=== PATIENT | male | born 1985 | race Hispanic/Latino ===

== ENCOUNTER 2025-02-28 23:16 | Emergency (ER) | payer BC ==
[~2025-02-28] VITALS: Ht 188 cm; Wt 158.8 kg
[2025-02-28 23:36] VITALS: BP 143/66; PULSE 88; RESP 18; TEMP 98.8; O2SAT 97
--- NOTE | 2025-02-28 23:42 | ERN ---
General Chief Complaint: Palpitations Stated Complaint: C/O PALPITATIONS, DIZZINESS, NUMBNESS Time Seen by MD: 23:22 Source: patient History of Present Illness Initial Comments 39-year-old morbidly obese male who has had a gastric sleeve followed by a gastric bypass surgery for weight loss. He states he has continued to gain weight. He has used to experiencing dumping syndrome. However today he started to feel more heart palpations, numbness to his extremities and or lightheadedness than usual so he comes to the hospital for evaluation. No fevers or chills Allergies: Coded Allergies: No Known Allergies (Unverified Allergy, Unknown, 02/28/25) Past Medical History Past Medical History: High Cholesterol, Other Medical History Other: HTN, HIGH CHOLESTEROL, lower extremity discoloran from past cellulitis Past Surgical History: Other Surgical History Other: GASTRIC BYPASS X 3 YRS AGO Constitutional: (-) chills, (-) diaphoresis, (-) fever, (-) malaise, (-) weakness, (-) other documentation EENTM: (-) eye pain, (-) blurred vision, (-) tearing, (-) double vision, (-) ear pain, (-) ear discharge, (-) nose pain, (-) nose congestion, (-) throat pain, (-) Throat swelling, (-) mouth pain, (-) tooth pain, (-) mouth swelling, (-) other documentation Respiratory: (-) cough, (-) orthopnea, (-) short of breath, (-) stridor, (-) wheezing, (-) other documentation Cardiovascular: (-) chest pain, (-) edema, (-) palpitations, (-) syncope, (-) dyspnea on exertion, (-) other documentation Gastrointestinal/Abdominal: (+) nausea Genitourinary: (-) penile discharge, (-) dysuria, (-) frequency, (-) hematuria, (-) pain, (-) other documentation Musculoskeletal: (-) Neck pain, (-) back pain, (-) Flank Pain, (-) joint pain, (-) joint swelling, (-) muscle pain, (-) muscle stiffness, (-) gout, (-) other documentation Skin: (-) laceration, (-) contusion, (-) abrasion, (-) abscess, (-) rash, (-) change in color, (-) change in hair, (-) change in nails, (-) diaphoresis, (-) dryness, (-) other documentation Neuro: (+) headache, (+) dizziness Physical Exam General Appearance: (+) mild distress Orientation: (+) alert, (+) oriented x 3 Head/Face Trauma: No Eye: bilateral eye normal inspection, bilateral eye PERRL, bilateral eye EOMI Ear, Nose, Throat: (+) hearing grossly normal, (+) normal ENT inspection, (+) moist mucous membraine Neck: (+) normal inspection, (+) supple, (+) full range of motion Respiratory: (+) chest non-tender, (+) lungs clear, (+) well ventilated Heart: (+) regular, (+) no gallop Vascular: (+) no edema, (+) normal peripheral pulse Gastrointestinal: (+) soft, (+) non-tender, (+) no organomegaly, (+) bowel sound present Results Laboratory and Microbiology Lab and Micro Result Laboratory Tests Test 02/28/25 23:54 03/01/25 00:08 White Blood Count 11.8 K/uL (4.8-10.8) H Red Blood Count 5.15 MIL/uL (4.50-6.20) Hemoglobin 15.0 g/dL (14.0-18.0) Hematocrit 45.4 % (42-54) Mean Corpuscular Volume 88.2 fL (79-99) Mean Corpuscular Hemoglobin 29.1 pg (27.0-33.0) Mean Corpuscular Hemoglobin Concent 33.0 g/dL (32.0-36.0) Red Cell Distribution Width 12.8 % (11.0-15.5) Platelet Count 217 K/uL (130-400) Mean Platelet Volume 9.7 fL (7.5-10.5) Immature Granulocyte % (Auto) 0.4 % (0-1) Neutrophils (%) (Auto) 72.8 % (40.0-77.0) Lymphocytes (%) (Auto) 16.2 % (21.0-51.0) L Monocytes (%) (Auto) 8.8 % (3.0-13.0) Eosinophils (%) (Auto) 1.1 % (0.0-8.0) Basophils (%) (Auto) 0.7 % (0.0-5.0) Neutrophils # (Auto) 8.6 K/uL (1.8-7.7) H Lymphocytes # (Auto) 1.9 K/uL (1.0-4.8) Monocytes # (Auto) 1.0 K/uL (0.1-1.0) Eosinophils # (Auto) 0.13 K/uL (0.00-0.70) Basophils # (Auto) 0.08 K/uL (0.00-0.20) Absolute Immature Granulocyte (auto 0.05 K/uL (0-1) Nucleated Red Blood Cells 0.0 % (0.0-0.19) Sodium Level 140 mmol/L (136-145) Potassium Level 3.5 mmol/L (3.5-5.1) Chloride Level 104 mmol/L (101-111) Carbon Dioxide Level 26 mmol/L (21-32) Blood Urea Nitrogen 14 mg/dL (7-18) Creatinine 0.7 mg/dL (0.5-1.3) Glomerular Filtration Rate Calc 122 mL/min (>90) Random Glucose 102 mg/dL (70-105) Total Calcium 8.5 mg/dL (8.5-10.1) Total Bilirubin 0.3 mg/dL (0.2-1.0) Aspartate Amino Transf (AST/SGOT) 22 U/L (10-37) Alanine Aminotransferase (ALT/SGPT) 31 U/L (12-78) Alkaline Phosphatase 83 U/L (50-136) Troponin I High Sensitivity 5 ng/L (4-75) Total Protein 7.3 g/dL (6.0-8.3) Albumin 3.6 g/dL (3.5-5.0) Urine Color YELLOW (YELLOW) Urine Appearance CLEAR (CLEAR) Urine pH 6.5 (5.0-8.0) Urine Specific [place] 1.023 (1.001-1.031) Urine Protein NEGATIVE mg/dL (NEGATIVE) Urine Glucose (UA) NEGATIVE mg/dL (NEGATIVE) Urine Ketones NEGATIVE mg/dL (NEGATIVE) Urine Occult Blood NEGATIVE (NEGATIVE) Urine Nitrate NEGATIVE (NEGATIVE) Urine Bilirubin NEGATIVE mg/dL (NEGATIVE) Urine Urobilinogen 2.0 mg/dL (0.2-1.0) H Urine Leukocyte Esterase NEGATIVE Nicole/uL MDM MDM: Differential diagnosis: Gastroenteritis, dumping syndrome, vasovagal response, acute HI, dehydration, reflux, Rationale: Tests considered and ordered secondary to shared decision making include: Previous outside records reviewed: Old ER visits. Risk of complication and/or morbidity or mortality of patient management: None Medications-Per medication reconciliation Need for hospitalization: Patient does meet criteria for hospitalization. Need for emergency major/minor surgery: No There are no social concerns with this patient. Prescription drug management Prescriptions will include symptomatic care Patient's prior external medical records from other ER visits were reviewed by me as indicated. Prior testing and results from previous visits were reviewed. Prior tests were taken into account with medical decision making and resource utilization, independent historian/historians were used to obtain complete medical history. Patient's workup is negative. His EKGs normal his cardiac enzymes are normal his chemistry panel is normal his urine does show a small amount bilirubin but otherwise is normal. I think that the patient had either a vasovagal response or a dumping syndrome. I independently interpreted the test that were performed, results were reviewed by me and considered findings on radiology if ordered. ED Course Orders Procedure Category Date Status Time Lactated Ringers PHA 02/28/25 Complete 1000ml (Lactated 23:33 Ondansetron 4mg Inj PHA 03/01/25 Complete (Zofran 4mg Inj) 00:00 Diphenhydramine Hcl PHA 03/01/25 Complete (Benadryl Inj) 00:00 Comprehensive LAB 02/28/25 Complete Metabolic Panel 23:33 Cbc With Differential LAB 02/28/25 Complete 23:33 Troponin I High LAB 02/28/25 Complete Sensitivity 23:33 12 Lead Ekg Tracing- EKG 02/28/25 Logged Technical 23:33 Urinalysis Profile LAB 02/28/25 Complete 23:33 Current Medications Medications (Trade) Dose Ordered Sig/Mayi Route PRN Reason Start Time Stop Time Status Last Admin Dose Admin Diphenhydramine HCl (BENAdryl INJ) 50 mg ONCE ONCE IV 03/01/25 00:00 03/01/25 00:01 DC 02/28/25 23:47 Lactated Ringer's (Lactated Ringers 1000ml) 1,000 ml BOLUS STAT IV 02/28/25 23:33 02/28/25 23:38 DC 02/28/25 23:47 Ondansetron HCl (zoFRAN 4MG INJ) 4 mg ONCE ONCE IVP 03/01/25 00:00 03/01/25 00:01 DC 02/28/25 23:47 Vital Signs Date Time Temp Pulse Resp B/P (MAP) Pulse Ox O2 Delivery O2 Flow Rate FiO2 02/28/25 23:36 98.8 88 18 143/66 97 Room Air* 0 21 02/28/25 23:21 98.8 85 18 143/66 99 Room Air 0 DX & DISP Disposition: Discharge Departure Impression: Primary Impression: Dumping syndrome Additional Impression: Vasovagal episode Condition: Stable Additional Instructions: Your workup was negative. I suspect this was a vaso vagal response or possible dumping syndrome. Please follow-up with your primary care physician if you have more and more of these episodes. PRATIBHA KIMBROUGH MD Feb 28, 2025 23:42
[2025-02-28] MEDS: LACTATED RINGERS 1000ML IV STA (23:47)
[2025-03-01 00:01] LABS: IMMATURE GRANULOCYTE ABSOLUTE 0.05 K/uL (0-1); NUCLEATED RED BLOOD CELLS 0.0 % (0.0-0.19); PLATELET COUNT (AUTO) 217 K/uL (130-400); RED BLOOD CELL COUNT(AUTO) 5.15 MIL/uL (4.50-6.20); RED CELL DISTRIBUTION WIDTH 12.8 % (11.0-15.5); WHITE BLOOD COUNT (AUTO) 11.8 K/uL (4.8-10.8)
[2025-03-01 00:10] LABS: CREATININE 0.7 mg/dL (0.5-1.3); GLOMERULAR FILTR. RATE CALC 122.0 mL/min (>90); GLUCOSE,RANDOM 102.0 mg/dL (70-105); SODIUM SERUM 140.0 mmol/L (136-145); UREA NITROGEN, BLOOD 14.0 mg/dL (7-18)
[2025-03-01 00:15] LABS: ASPARTATE AMINOTRANSFERASE 22.0 U/L (10-37); TOTAL PROTEIN, SERUM 7.3 g/dL (6.0-8.3)
[2025-03-01 00:31] LABS: APPEARANCE,URINE CLEAR (CLEAR); GLUCOSE, URINE (UA) NEGATIVE (NEGATIVE); LEUKOCYTE ESTERASE ,URINE NEGATIVE Leu/uL (NEGATIVE); NITRATE,URINE NEGATIVE (NEGATIVE); OCCULT BLOOD,URINE NEGATIVE (NEGATIVE)
[2025-03-01 00:34] LABS: ADD UA MICROSCOPIC NO
--- NOTE | 2025-03-01 07:17 | EKG ---
[facility] Test Date: 2025-03-01 Test Time: 00:11:04 Pat Name: DICK DIXON Department: ED Patient ID: [facility] [id number] Room: Gender: M Wood Turner: [id number] : 1985 Requested By: PRATIBHA KIMBROUGH Order Number: [id number] Reading MD: Travis Machuca Measurements Intervals [place] Rate: 76 P: 55 PA: 161 QRS: -21 QRSD: 103 T: -1 QT: 394 QTc: 443 Interpretive Statements Sinus rhythm No previous ECG available for comparison Electronically Signed On 03-01-2025 19:22:28 DIRECTOR CLOUD TRANSFORMATION by Travis Machuca Please click the below link to view image of tracing.
== END 2025-03-01 00:59 | disposition home or self-care (01) ==
LOC: EDH 23:16
DX: K91.1 Postgastric surgery syndromes (principal); R55 Syncope and collapse; E66.01 Morbid (severe) obesity due to excess calories; E78.00 Pure hypercholesterolemia, unspecified; I10 Essential (primary) hypertension; Z98.84 Bariatric surgery status
CPT/HCPCS: 99284; 96374; 96375; 84484; 80053; 85025; 81003; 36415; 93005; J7120; J1200; J2405